=== PATIENT | female | born 2000 | race Caucasian/White ===

== ENCOUNTER 2020-06-17 22:55 | Outpatient (CLI) | payer SELFPAY ==
[~2020-06-17] VITALS: Ht 152.4 cm; Wt 60.5 kg
--- NOTE | 2020-06-17 23:15 | NUR ---
at 24 weeks arrives to unit ambulatory. [employer] [facility]reach Specialist services used to obtain history. Pt reports feeling back pain for the last 4 days that got worse this afternoon but states this evening it has gotten better. Pt denies vaginal bleeding or LOF. Pt reports feeling good movement. Pt also states that she feels like her pelvic bones are splitting and breaking. US and toco explained and applied. SVE closed/thick/high. Plan of care reviewed with patient, pt verbalized understanding.
[2020-06-17 23:30] VITALS: BP 118/74; PULSE 75; TEMP 99
--- NOTE | 2020-06-17 23:40 | NUR ---
No contractions seen on monitor. FHR tracing normal for 24 weeker. Pt comfortable with discharge plan after being reassured cervix is closed.
--- NOTE | 2020-06-18 00:15 | NUR ---
Bulgarian discharge instructions given to patient. Pt verbalized understanding of discharge plan. Pt and spouse seen ambulating off unit.
== END 2020-06-18 00:15 | disposition home or self-care (01) ==
LOC: LDRO 22:55 → LDR 23:26 → LDRO 06-18 00:15
DX: O26.892 Other specified pregnancy related conditions, second trimester (principal); M54.9 Dorsalgia, unspecified; Z3A.28 28 weeks gestation of pregnancy
CPT/HCPCS: OP

== ENCOUNTER 2020-09-22 11:26 | Emergency (ER) | payer MEDICAID ==
[~2020-09-22] VITALS: Ht 152.4 cm; Wt 67.7 kg
[2020-09-22 11:30] VITALS: TEMP 98.3
[2020-09-22 12:55] VITALS: BP 118/80; PULSE 98
== END 2020-09-22 12:55 | disposition home or self-care (01) ==
LOC: COL.ER 11:26
DX: O26.893 Other specified pregnancy related conditions, third trimester (principal); R04.0 Epistaxis; Z3A.39 39 weeks gestation of pregnancy

== ENCOUNTER 2020-09-27 05:26 | Inpatient (IN) | payer MEDICAID ==
[2020-09-27] VITALS (17 sets, daily range): BP systolic 103–160; BP diastolic 52–93; PULSE 60–80; TEMP 98.3–98.6
[~2020-09-27] VITALS: Ht 152.4 cm; Wt 67.7 kg
--- NOTE | 2020-09-27 05:58 | NUR ---
Patient ambulatory to room 210 for scheduled repeat . She is filipino speaking. Google translate used to explain EFM. FHR 130 bpm and reactive. No CTX. VSS. With the use of Google translate patient reports good movement and denies contractions, ROM, or bleeding. 0600 IV started in left hand with labs drawn from site. IVF infusing per protocol.
[2020-09-27 06:20] LABS: BASO % 0.2 % (0.0-2.0); EOS # 0.1 (0.0-0.7); EOS % 0.9 % (0-4.0); GRAN # 5.1 (1.4-6.5); GRAN % 57.2 % (42.2-75.2); HEMOGLOBIN 10.8 g/dl (12.5-16.0); LYMPH % 33.1 % (20.0-51.0); MEAN CELL VOLUME 87 fl (80.0-100.0); MEAN CORPUSCULAR HEMOGLOBIN 29 pg (27.0-31.0); MEAN CORPUSCULAR HGB CONC 33 g/dl (33.0-37.0); MEAN PLATELET VOLUME 9.9 fl (7.4-10.4); MONO # 0.7 (0.1-0.6); PLATELET COUNT 247 K/mm3 (130-400); RED BLOOD COUNT 3.75 M/mm3 (4.10-5.30); REDCELL DISTRIBUTION WIDTH-CV 12.9 % (11.5-14.5)
[2020-09-27 06:26] LABS: HEMATOCRIT 32.6 % (37.0-47.0)
[2020-09-27] MEDS ORDERED: PRENATAL TABLET PO (06:45)
--- NOTE | 2020-09-27 10:29 | NUR ---
1000 THIS RN TO USE TRANSLATE XIN TO ORIENT MOTHER AND FATHER TO ROOM BY SHOWING THEM HOW TO USE THE CALL LIGHT, TV, TURN ON AND OFF LIGHTS ABOVE BED. DISCUSSED HOW OFTEN AND HOW MUCH TO FEED INFANT. DISCUSSED PUMPING SCHEDULE AND HOW TO SAVE AND USE PUMPED MILK. ORIENTED PARENTS TO CRIB USAGE, WHERE DIAPERS AND WIPES ARE, SAFE SLEEP DISCUSSED. PARENTS AWARE THAT HAS A SECURITY TAG ON ANKLE AND ALARM WILL SOUND IF TAG BECOMES LOOSE, CUT, OR IS TOO CLOSE TO UNIT EXITS. PARENTS AWARE OF CERTIFICATE FORM TO BE FILLED OUT.
[2020-09-27] MEDS ORDERED: PERCOCET 325 MG1 TA2 PO (21:54)
[2020-09-27] MEDS ORDERED: IBU600 MG PO (21:54)
[2020-09-28 00:30] VITALS: BP 108/60; PULSE 62; TEMP 98.8
[2020-09-28 04:30] VITALS: BP 103/59; PULSE 64; TEMP 98.1
[2020-09-28 08:00] VITALS: BP 111/52; PULSE 77; TEMP 97.8
--- NOTE | 2020-09-28 09:53 | NUR ---
Initial visit attempt; Family resting, Supervisor Jewelry Department left card of congratulations and God's blessings for their daughter along with information regarding the availability of spiritual care at our hospital.
[2020-09-28 16:11] VITALS: BP 110/66; PULSE 68; TEMP 97.8
[2020-09-28 19:30] VITALS: BP 115/65; PULSE 73; TEMP 98.4
[2020-09-29 07:42] VITALS: BP 108/64; PULSE 71; TEMP 99
--- NOTE | 2020-09-29 13:23 | NUR ---
Dial Marker met with patient and father of , Jerald (ph#[phone]) by utilizing the aging department supervisor line. Patient and Jerald live in [place]. Patient states she has another daughter, however the daughter lives with her grandparents in [place]. Patient states she and Jerald do not have any family in the local area. Patient reports she has all the supplies needed at home for baby including diapers, wipes, bottles. Patient is not currently employed however father, Jerald works in a local restaurant. Patient states she plans to stay at home with baby for a couple months before returning to the workforce. Patient states she will work in the evenings and Jerald will work in the mornings. Patient does not have insurance but advised she received a phone call from [employer] Counseling. Patient did not have a Financial Assistance Application however. ANATOLIY provided the [facility] Resource Guide in Gabonese. Patient denies any further questions or concerns at this time. ANATOLIY left a [place]onese FAA with RN, Carolina to provide to patient along with other discharge paperwork.
--- NOTE | 2020-09-29 14:28 | NUR ---
DISCHARGE INSTRUCTIONS GIVEN USING ELECTRIC SIGN WIRER PHONE AND RWANDAN HANDOUTS WERE GIVEN TO PATIENT. FOLLOW UP APPOINTMENTS SCHEDULED AND PT AWARE OF WHERE TO PICKUP PRESCRIPTION. PT STATES UNDERSTANDING AND NO QUESTIONS. SS SAW FOR OUTSIDE FINANCIAL RESOURCES PER INTERIOR DESIGN DIRECTOR REQUEST. PAIN CONTROLLED. PT AMBULATED TO CAR ACCOMPANIED BY STAFF
== END 2020-09-29 13:58 | disposition home or self-care (01) | DRG 788 ==
LOC: OB
PROVIDERS: ADMIT Obstetrics & Gynecology
PROC: 10D00Z1 Extraction of Products of Conception, Low, Open Approach (ICD-10-PCS; principal; 2020-09-27)
DX: O34.211 Maternal care for low transverse scar from previous cesarean delivery (principal); O99.02 Anemia complicating childbirth; D64.9 Anemia, unspecified; Z3A.38 38 weeks gestation of pregnancy; Z37.0 Single live birth
CPT/HCPCS: J0690; J2175; J2370; J2405; J2590; J7120